=== PATIENT | female | born 1995 | race Caucasian/White ===

== ENCOUNTER 2018-03-13 15:55 | Emergency (ER) | payer SELFPAY ==
[~2018-03-13] VITALS: Ht 160 cm; Wt 79.4 kg
[2018-03-13 16:35] VITALS: BP 113/59
--- NOTE | 2018-03-13 16:43 | NUR ---
PT TO ER BED 10
--- NOTE | 2018-03-13 17:10 | NUR ---
22/F BIB SELF, C/O OF SORE THROAT , HACKING COUGH, PATIENT STATES SHE HAS DIFFICULTY BREATHING 6 DAYS. LIGHT GREEN PHLEGM WITH COUGH, BREATHING IS UNLABORED, LUNG SOUNDS RHONCHI WITH INSPIRATORY, DENIES PAIN OR CP. PATIENT IS AOX4, CLEAR SPEECH, STEADY GAIT.
[2018-03-13 19:05] VITALS: BP 114/61
--- NOTE | 2018-03-13 19:05 | NUR ---
Patient discharged with v/s stable. Written and verbal after care instructions given and explained. Patient alert, oriented and verbalized understanding of instructions. Ambulatory with steady gait. All questions addressed prior to discharge. ID band removed. Patient advised to follow up with PMD. Rx of CASEY LILLY given. Patient educated on indication of medication including possible reaction and side effects. Opportunity to ask questions provided and answered.
== END 2018-03-13 19:05 | disposition home or self-care (01) ==
LOC: MED 15:55
DX: B34.9 Viral infection, unspecified (principal); J04.0 Acute laryngitis
CPT/HCPCS: 99283

== ENCOUNTER 2018-04-06 05:25 | Emergency (ER) | payer SELFPAY ==
[~2018-04-06] VITALS: Ht 160 cm; Wt 79.4 kg
[2018-04-06 05:31] VITALS: BP 103/73
--- NOTE | 2018-04-06 05:34 | NUR ---
PT AMBULATED TO BED 4 WITH VSS.
--- NOTE | 2018-04-06 05:44 | NUR ---
PT BIB SELF FOR ABD PAIN X1 DAY. PT REPORTS SHARP EPIGASTRIC PAIN AT 10/10 THAT RADIATES TO BACK AND IS WORSE WITH DEEP BREATHING. PT STATES SHE HAS TAKEN ADVIL FOR PAIN WITH NO RELIEF. PT REPORTS N/V WITH YELLOW EMISSIS 4X IN PAST 24 HOURS. PT ABD IS SOFT, BOWEL SOUNDS ACTIVE X4 QUADRANTS, TENDER TO TOUCH IN EPIGASTRIC REGION. PT STATES LAST BM WAS YESTERDAY, DENIES DIARRHEA OR FEVER. ER MD TO SEE PT. SIDE RAIL UP X1, HOB ELEVATED, BED IN LOWEST POSITION. WILL CONTINUE TO MONITOR. MEDHX: CHOLELITHIASIS RX: ADVIL
[2018-04-06] MEDS ORDERED: MORPHINE SULFATE 4 MG/ML SYR IVP ONE (06:05)
[2018-04-06] MEDS ORDERED: ONDANSETRON 4 MG/2 ML VIAL IVP ONE (06:05)
[2018-04-06 06:21] LABS: BASOPHILS % (AUTO) 0.2 % (0.0-2.0); EOSINOPHILS % (AUTO) 0.6 % (0.0-4.0); HEMATOCRIT 41.9 % (36-48); HEMOGLOBIN 13.7 g/dL (12.0-16.0); LYMPHOCYTES # (AUTO) 1.1 K/uL (2.5-16.5); LYMPHOCYTES % (AUTO) 13.5 % (20.5-51.1); MEAN CORPUSCULAR HEMOGLOBIN 27 pg (27-31); MEAN CORPUSCULAR HGB CONC 33 g/dL (33-37); MEAN CORPUSCULAR VOLUME 82.7 fL (80-94); MONOCYTES # (AUTO) 0.5 K/uL (0.8-1.0); MONOCYTES % (AUTO) 6.4 % (1.7-9.3); NEUTROPHILS # (AUTO) 6.5 K/uL (1.8-7.7); NEUTROPHILS % (AUTO) 79.3 % (42.2-75.2); PLATELET COUNT (AUTO) 242 K/uL (140-450); RED BLOOD CELL COUNT(AUTO) 5.07 MIL/uL (4.20-5.40); RED CELL DISTRIBUTION WIDTH 14.3 % (11.6-13.7); WHITE BLOOD COUNT (AUTO) 8.2 K/uL (4.8-10.8)
--- NOTE | 2018-04-06 06:27 | NUR ---
Ultrasound at bedside.
[2018-04-06 06:43] LABS: ALBUMIN 3.8 g/dL (3.4-5.0); ANION GAP 8.9 (8-16); CARBON DIOXIDE 30.2 mmol/L (21-32); CREATININE 0.8 mg/dL (0.6-1.3); POTASSIUM 4.1 mmol/L (3.5-5.1); TOTAL BILIRUBIN 0.7 mg/dL (0.0-1.0)
[2018-04-06 06:47] LABS: APPEARANCE,URINE HAZY (CLEAR); BILIRUBIN,URINE NEGATIVE (NEGATIVE); BLOOD, URINE TRACE-I (NEGATIVE); COLOR,URINE YELLOW (YELLOW); LEUKOCYTE ESTERASE ,URINE NEGATIVE (NEGATIVE); NITRITE, URINE NEGATIVE (NEGATIVE); PH,URINE 7.5 (5.0-9.0); UGLUCOSE NEGATIVE (NEGATIVE)
[2018-04-06 06:50] LABS: RBC,URINE 3-10 (FEW) /HPF (0-5); WBC,URINE 0-5 (RARE) /HPF (0-5)
--- NOTE | 2018-04-06 07:04 | NUR ---
REPORT RECIEVED FROM DEONDRE BALBUENA.
[2018-04-06] MEDS ORDERED: cefTRIAXone 1,000 MG VIAL ONE (07:29)
[2018-04-06 08:08] VITALS: BP 105/79
--- NOTE | 2018-04-06 08:10 | NUR ---
Patient discharged with v/s stable. Written and verbal after care instructions given and explained. Patient alert, oriented and verbalized understanding of instructions. Ambulatory with steady gait. All questions addressed prior to discharge. ID band removed. Patient advised to follow up with PMD. Rx of CIPRO AND PEPCID given. Patient educated on indication of medication including possible reaction and side effects. Opportunity to ask questions provided and answered.
== END 2018-04-06 08:10 | disposition home or self-care (01) ==
LOC: MED 05:25
DX: N39.0 Urinary tract infection, site not specified (principal); K80.20 Calculus of gallbladder without cholecystitis without obstruction
CPT/HCPCS: 36415; 76705; 80053; 81001; 81025; 82150; 83690; 85025; 96365; 96375; 99284; J0696; J2270; J2405; J7060; Q0092

== ENCOUNTER 2018-04-20 15:21 | Emergency (ER) | payer SELFPAY ==
[~2018-04-20] VITALS: Ht 160 cm; Wt 79.4 kg
--- NOTE | 2018-04-20 15:33 | NUR ---
PATIENT AMBULATED TO BED 12.
--- NOTE | 2018-04-20 15:33 | NUR ---
URINE CUP GIVEN, REPORT TO HIEN MENDOSA
[2018-04-20 15:37] VITALS: BP 106/65
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
[2018-04-20] MEDS ORDERED: KETOROLAC 60 MG/2 ML VIAL IM ONE (16:10)
[2018-04-20 17:29] VITALS: BP 110/69
--- NOTE | 2018-04-20 17:30 | NUR ---
Patient discharged with v/s stable. Written and verbal after care instructions given and explained. Patient alert, oriented and verbalized understanding of instructions. Ambulatory with steady gait. All questions addressed prior to discharge. ID band removed. Patient advised to follow up with PMD. Rx of NORCO, MOTRIN given. Patient educated on indication of medication including possible reaction and side effects. Opportunity to ask questions provided and answered.
== END 2018-04-20 17:30 | disposition home or self-care (01) ==
LOC: MED 15:21
DX: R07.89 Other chest pain (principal); V43.53XA Car driver injured in collision with pick-up truck in traffic accident, initial encounter; Y93.89 Activity, other specified; Y92.488 Other paved roadways as the place of occurrence of the external cause; Y99.8 Other external cause status
CPT/HCPCS: 71045; 81002; 81025; 96372; 99283; J1885; Q0092